=== PATIENT | female | born 1970 | race Caucasian/White ===

== ENCOUNTER 2019-02-18 12:10 | Day surgery (SDC) | payer BC, OTHER ==
[2019-02-18] MEDS ORDERED: ONDANSETRON 4 MG INJ IV (14:30)
[2019-02-18] MEDS ORDERED: PROPOFOL 40 ML (14:37)
[2019-02-18] MEDS ORDERED: LIDOCAINE 2% (SDV) 5 ML INJ (14:37)
[2019-02-18] MEDS ORDERED: PROPOFOL 20 ML ×2 (15:07)
== END 2019-02-18 16:02 | disposition home or self-care (01) ==
LOC: GIL 12:10
DX: R19.4 Change in bowel habit (principal); K64.8 Other hemorrhoids; K21.0 Gastro-esophageal reflux disease with esophagitis; K29.00 Acute gastritis without bleeding
CPT/HCPCS: 43239; 84703; 88305; 88312